=== PATIENT | female | born 1960 | race Caucasian/White ===

== ENCOUNTER 2024-01-16 19:35 | Emergency (ER) | payer OTHER, MEDICAID, SELFPAY ==
--- NOTE | ~2024-01-16 | XR_ITS ---
EXAMINATION: XR ELBOW, RIGHT XR ELBOW, LEFT XR HAND, RIGHT CLINICAL INFORMATION: Fall. Pain. COMPARISON: Left elbow radiographs dated 02/01/2012. TECHNIQUE: AP, oblique, and lateral views of the right and left elbow. AP, oblique, and lateral views of the right hand. FINDINGS: RIGHT ELBOW: Minimally displaced, transverse fracture through the right radial neck with cortical step off measuring up to 0.2 cm medially. No extension to the articular surface. No additional fracture. No dislocation. No joint space narrowing or marginal osteophytes. No osseous erosion. Vtccw-[id number]-[id number] elbow joint effusion. No abnormal soft tissue calcification. LEFT ELBOW: Cortical irregularity at the anterior aspect of the radial head contacting the articular surface, consistent with a nondisplaced anterior radial head fracture. No dislocation. Mild ulnotrochlear joint space narrowing with small marginal osteophytes. No osseous erosion. Moderate joint effusion. No abnormal soft tissue calcification. RIGHT HAND: Mildly displaced, oblique fracture through the ulnar base of the 5th proximal phalanx. The fracture fragment measures up to 0.5 cm with cortical step off along the 5th metacarpophalangeal articular surface measuring up to 0.1 cm. No dislocation. Normal carpal alignment. Joint space narrowing with marginal osteophytes throughout the metacarpophalangeal and interphalangeal joints. No osseous erosion. No abnormal soft tissue calcification. XR/XR hand RT min 3V IMPRESSION: RIGHT ELBOW: Minimally displaced, transverse fracture through the right radial neck. Arper-wj-[id number] elbow joint effusion. LEFT ELBOW: Nondisplaced anterior radial head fracture. Mild ulnotrochlear osteoarthritis. Moderate joint effusion. RIGHT HAND: 1. Mildly displaced, oblique fracture through the ulnar base of the 5th proximal phalanx with a fracture fragment measuring up to 0.5 cm and cortical step off along the 5th metacarpophalangeal articular surface. Moderate joint effusion. 2. 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
--- NOTE | ~2024-01-16 | CT_ITS ---
EXAMINATION: CT HEAD WITHOUT CONTRAST CT FACIAL BONES WITHOUT CONTRAST CT CERVICAL SPINE WITHOUT CONTRAST CLINICAL INFORMATION: Fall. Head strike. COMPARISON: CT head from 08/17/2016. TECHNIQUE: Imaging was performed from the skull base to vertex without intravenous administration of contrast. In addition, helical noncontrast CT imaging was acquired through the cervical spine and facial bones and source images were reviewed along with axial reconstructions and sagittal and coronal MPRs. This CT examination was performed using dose optimization techniques as appropriate, variously including the following: *Automated exposure control. *Adjustment of mA and/or kV according to patient size (this includes techniques or standardized protocols for targeted exams where dose is matched to indication/reason for exam; i.e. extremities or head). *Use of iterative reconstruction technique. DLP: 1165 mGy-cm FINDINGS: Head: There is no evidence of acute intracranial hemorrhage or edematous territorial infarction. Skaggs-white matter differentiation is preserved. A few foci of hypoattenuation in the periventricular and deep white matter are consistent with mild microangiopathy. Proportional prominence of the ventricles and sulcal spaces without evidence of obstructive hydrocephalus. Few punctate cortical calcifications of the bilateral parietal lobes. No abnormal mass effect or midline shift. No extra-axial fluid collections. Calcific atherosclerotic disease of the intracranial internal carotid arteries. No hyperdense vessel sign. No acute soft tissue or osseous calvarial abnormalities. Maxillofacial Bones: Mild edema/hematoma of the preseptal, periorbital soft tissues lateral to the right orbit. No evidence of maxillofacial bone fractures. The zygomatic arches remain intact. No nasal bone fracture. The nasal septum remains midline. No evidence of mandibular or maxillary fracture. The mandibular condyles remain well-seated in their respective temporal articular grooves. Advanced left-sided and mild right-sided arthropathy of the temporomandibular joints. Normal appearance of the intraconal and extraconal fat. No evidence of traumatic injury to the extraocular musculature or globes. Mild mucosal thickening of the paranasal sinuses. The mastoid air cells and middle ear cavities are clear. No layering fluid collections. Cervical Spine: The atlantooccipital and atlantoaxial articulations remain well aligned. Straightening of the normal cervical lordosis. Mild degenerative stepwise anterolistheses of C2-C5. Otherwise, there is anatomic alignment of the vertebral bodies and posterior elements. No evidence of acute fracture or subluxation. The vertebral body heights are maintained. Advanced degenerative disc disease at C5-C6 and C6-C7. Mild to moderate degenerative disc disease at all additional levels. Facet and uncovertebral joint arthropathy leads to osseous encroachment on the neural foramina from C5-T2. There is no prevertebral soft tissue swelling. The thyroid gland and remaining cervical soft tissues are within normal limits. Mild to moderate centrilobular emphysema the visualized upper lungs. There is a 0.3 cm nodule in the left apex. CT/CT cervical spine wo IV con IMPRESSION: 1. No evidence of acute intracranial hemorrhage or edematous territorial infarction. Mild underlying microangiopathy and generalized cerebral volume loss. 2. No evidence of acute fracture or traumatic subluxation of the cervical spine. Moderate multilevel degenerative spondyloarthropathy of the cervical spine. 3. Mild edema/hematoma of the preseptal, periorbital soft tissues lateral to the right orbit. No associated maxillofacial bone fractures. 4. Emphysema. There is a 0.3 cm nodule in the left apex. According to the UPDATED 2017 Fleischner Society recommendations, the advised follow-up imaging for nodules <6mm in the upper lobes is not necessarily required in low-risk patients. In high-risk patients with a nodule in the upper lobe and/or demonstrating suspicious morphology, an optional CT follow-up at 12 months may be obtained. If stable at 12 months, no further follow-up is recommended.
--- NOTE | ~2024-01-16 | XR_ITS ---
EXAMINATION: XR ELBOW, RIGHT XR ELBOW, LEFT XR HAND, RIGHT CLINICAL INFORMATION: Fall. Pain. COMPARISON: Left elbow radiographs dated 02/01/2012. TECHNIQUE: AP, oblique, and lateral views of the right and left elbow. AP, oblique, and lateral views of the right hand. FINDINGS: RIGHT ELBOW: Minimally displaced, transverse fracture through the right radial neck with cortical step off measuring up to 0.2 cm medially. No extension to the articular surface. No additional fracture. No dislocation. No joint space narrowing or marginal osteophytes. No osseous erosion. Lylen-pn-[id number] elbow joint effusion. No abnormal soft tissue calcification. LEFT ELBOW: Cortical irregularity at the anterior aspect of the radial head contacting the articular surface, consistent with a nondisplaced anterior radial head fracture. No dislocation. Mild ulnotrochlear joint space narrowing with small marginal osteophytes. No osseous erosion. Moderate joint effusion. No abnormal soft tissue calcification. RIGHT HAND: Mildly displaced, oblique fracture through the ulnar base of the 5th proximal phalanx. The fracture fragment measures up to 0.5 cm with cortical step off along the 5th metacarpophalangeal articular surface measuring up to 0.1 cm. No dislocation. Normal carpal alignment. Joint space narrowing with marginal osteophytes throughout the metacarpophalangeal and interphalangeal joints. No osseous erosion. No abnormal soft tissue calcification. XR/XR elbow LT 2V IMPRESSION: RIGHT ELBOW: Minimally displaced, transverse fracture through the right radial neck. Lfvaf-[id number] elbow joint effusion. LEFT ELBOW: Nondisplaced anterior radial head fracture. Mild ulnotrochlear osteoarthritis. Moderate joint effusion. RIGHT HAND: 1. Mildly displaced, oblique fracture through the ulnar base of the 5th proximal phalanx with a fracture fragment measuring up to 0.5 cm and cortical step off along the 5th metacarpophalangeal articular surface. Moderate joint effusion. 2. 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
[2024-01-16 20:01] VITALS: BP 149/79; PULSE 89; RESP 16; TEMP 36.7; O2SAT 96; BMI 25.0
--- NOTE | 2024-01-16 20:02 | ED_ITS ---
[facility] General Adult General Chief complaint: Fall Stated complaint: fell, hit and head,right arm pain Time Seen by Provider: 01/16/24 23:01 Source: patient Mode of arrival: ambulatory History of Present Illness HPI narrative: 63-year-old female who states that she fell outside on the cement after smoking a cigarette and landed on her arms but also struck the right eyebrow but did not lose consciousness and is not on any blood thinners. Patient does report bilateral elbow pain as well as bruising noted over the dorsal aspect of the right hand Related Data Allergies Allergy/AdvReac Type Severity Reaction Status Date / Time Penicillins [PENICILLINS] Allergy Unknown HIVES Unverified 08/04/20 16:16 Review of Systems Review of Systems: Pertinent positives and negatives as stated in [facility] Past Medical History Source: nursing notes reviewed Social History Social History Alcohol intake: current Alcohol intake frequency: 0-2 drinks per day Smoked in Last 30 Days: Yes Use of substances other than those prescribed or required for medical reasons: No Advance Directives: No Advance Directives Information Provided: No Patient : No Physical Exam ED Vital Signs: Vital Signs - 24 hr 01/16/24 20:01 01/16/24 23:47 Temperature 98.0 F Pulse Rate 89 69 Respiratory Rate 16 18 Blood Pressure 149/79 H 126/70 Pulse Oximetry 96 92 Oxygen Delivery Method Room Air Room Air BMI result Body Mass Index 25.0 VITAL SIGNS: Reviewed. GENERAL: Well developed, well nourished, in no acute distress. HEAD: Normocephalic/hematoma-contusion at right orbit EYES: PERRLA, EOMI EARS: Ext canals without abnormality NOSE: Nares patent bilateral OROPHARYNX: no oral lesions noted, posterior pharynx clear NECK: Supple, no adenopathy LUNGS: Normal breath sounds. No adventitious sounds or accessory muscle use. SpO2<> CARDIOVASCULAR: Regular rate and rhythm without noted murmurs ABDOMEN: Soft, non-tender, non-distended with bowel sounds. MUSCULOSKELETAL: No tenderness, deformities, or effusions noted on gross inspection. EXTREMITIES: No cyanosis, clubbing or edema. RIGHT HAND: Ecchymosis noted across the dorsal aspect of the hand with superficial abrasions involving the 4th and 5th digits there is also noted bruising to the hypothenar palmar aspect of the right hand SKIN: Inspection of the skin reveals no rashes NEUROLOGIC: Alert and oriented x 4. Strength and sensation to light touch were grossly intact x 4. Course Course Course Narrative: This is a rapid medical exam: Additional HPI, ROS, PE not included below will be deferred to primary provider. Patient is a 63-year-old female presenting to the ED with complaint of head injury and right arm pain after fall. She was outdoors going for a walk, hadn't smoke cigarettes in about 2 months, smoke a cigarette today and became dizzy, causing her to fall. She denies loss of consciousness. She is not anticoagulated. Denies any headache, blurred or double vision, nausea or vomiting. Complaining of right hand pain and bruising, skin tear. Also complains of pain to inside of bilat elbow. Pain and swelling to R eyebrow. Plan: CTs, x-rays Medications Administered Discontinued Medications Generic Name Dose Route Start Last Admin Trade Name Freq PRN Reason Stop Dose Admin Acetaminophen 975 mg 01/17/24 00:10 01/17/24 00:36 Acetaminophen 325 Mg Tablet PO 01/17/24 00:11 975 mg ONCE ONE Administration Procedures Orthopedic Splinting/Casting Injury #1: Side: right Upper Extremity Injury Location: elbow and hand Upper Extremity Immobilizer: sling/shoulder immobilizer and sugar tong splint Injury #2: Side: left Upper Extremity Injury Location: elbow Upper Extremity Immobilizer: sling/shoulder immobilizer and posterior sp lint Medical Decision Making Medical Decision Making MDM Narrative: 63-year-old female who suffered a mechanical fall, I reviewed all imaging studies and there is no evidence of intracranial hemorrhage or mass effect, cervical spine is without fracture or subluxation, however there are fractures of bilateral proximal radial heads as well as base of the 5th proximal phalanx of the right hand. Sugar-tong splint was applied to right upper extremity and a short posterior splint applied to the left elbow in an effort to provide patient with some mobility of the left hand. Patient was then provided with slings and a referral to follow-up with orthopedics. Differential Diagnosis Differential Diagnoses: The differential diagnosis associated with the presentation includes Please see the discussion above Admission/Observation Consideration of admission/observation: Escalation of care including admission/observation considered Please see the discussion above Radiology Impression Discussion of test interpretation with radiology: I have reviewed the radiologist's reading. Radiologist Impression: Please see the discussion above External Record Review External record reviewed: Prior outpatient radiology Critical Care Time Critical Care Time Critical Care Time: Yes Total Critical Care Time: 30 Attestation: I personally attest to this time spent taking care of the patient. Discharge Plan Discharge Clinical Impression: Fracture of finger of right hand, Fracture of radial head, right, closed, Fracture of radial head, left, closed Patient Disposition: Home, Self-Care Instructions: Elbow Fracture (ED), Finger Fracture (ED), How to Use a Sling (ED), Splint Care (ED) Additional Instructions: Call the orthopedic office 1st thing in the morning to set up an appointment for re-evaluation further outpatient management. We will need considerable assistance in performing activities of daily living, you mentioned that you had a friend Referrals: David Barnhart MD [Primary Care Provider] - Brandyn Chandler MD [Physician] -
[2024-01-16 23:47] VITALS: BP 126/70; PULSE 69; RESP 18; O2SAT 92
[2024-01-17] MEDS: Acetaminophen 325 MG TABLET 975 MG PO (00:36)
== END 2024-01-17 01:19 | disposition home or self-care (01) ==
PROVIDERS: Emergency Provider Student in an Organized Health Care Education/Training Program; PCP Internal Medicine
DX: S62.616A Displaced fracture of proximal phalanx of right little finger, initial encounter for closed fracture (principal); S52.101A Unspecified fracture of upper end of right radius, initial encounter for closed fracture; S52.102A Unspecified fracture of upper end of left radius, initial encounter for closed fracture; M25.532 Pain in left wrist; M25.531 Pain in right wrist; M54.2 Cervicalgia; R51.9 Headache, unspecified; M79.602 Pain in left arm; M79.601 Pain in right arm; W01.10XA Fall on same level from slipping, tripping and stumbling with subsequent striking against unspecified object, initial encounter; Y93.9 Activity, unspecified; Y92.9 Unspecified place or not applicable; Y99.8 Other external cause status
CPT/HCPCS: 29105; 70450; 70486; 72125; 73070; 73130; 99284